=== PATIENT | male | born 1975 | race African-American/Black ===

== ENCOUNTER 2017-06-19 11:59 | Observation (INO) | payer MEDICAID, OTHER ==
[~2017-06-19] VITALS: Ht 170.2 cm; Wt 140.6 kg
[~2017-06-19 11:59] MED LIST: LOPRESSOR
[2017-06-19] MEDS ORDERED: ONDANSETRON HCL 4 MG/2 ML VIAL IV ONE (14:00)
[2017-06-19] MEDS ORDERED: MEPERIDINE HCL (25 MG/ML) 1ML VIAL IV ONE ×2 (14:00→16:00)
[2017-06-19 14:04] LABS: Basophils # (auto) 0.1 uL; Basophils % (auto) 1.3 % (0.0-2.0); Eosinophils # (auto) 0.3 uL; Eosinophils % (auto) 2.5 % (0.0-7.0); Hematocrit 44.7 % (41.0-53.0); Hemoglobin 14.8 g/dL (13.5-17.5); Lymphocytes % (auto) 27.2 % (10.0-50.0); Mean Corpuscular Hemoglobin 29.3 pg (28.0-32.0); Mean Corpuscular Hgb Conc. 33.1 g/dL (32.0-36.0); Mean Corpuscular Volume 88.4 fL (80.0-100.0); Monocytes # (auto) 0.7 uL; Neutrophils # (auto) 7.1 uL; Platelet Count (auto) 329 10^3/uL (140-450); Red Blood Cells 5.06 10^6/uL (4.5-5.90); Red Cell Distribution Width 14.1 % (11.8-14.3); White Blood Cell 11.2 10^3/uL (4.4-10.8)
[2017-06-19 14:17] LABS: INR 0.98 (0.9-1.15); Partial Thromboplastin Time 26.1 sec (22.64-33.71); Prothrombin Time 10.7 sec (9.37-12.3)
[2017-06-19] MEDS ORDERED: PERCOT PO (14:17)
[2017-06-19] MEDS ORDERED: METF-370 PO (14:17)
[2017-06-19] MEDS ORDERED: SIMV40TA96 PO (14:17)
[2017-06-19] MEDS ORDERED: METO-5 PO (14:17)
[2017-06-19] MEDS ORDERED: FURO40TA PO (14:17)
[2017-06-19] MEDS ORDERED: LISI30TA36 PO (14:17)
[2017-06-19] MEDS ORDERED: ASPI-378 PO (14:17)
[2017-06-19] MEDS ORDERED: ZOLP10TA PO (14:17)
[2017-06-19] MEDS ORDERED: CLOP75TA28 PO (14:17)
[2017-06-19 14:26] LABS: Alanine Aminotransferase 49 U/L (16-61); Albumin 4.1 g/dL (3.4-5.0); Alkaline Phosphatase 92 U/L (45-117); Anion Gap 8 (5-15); Aspartate Aminotransferase 27 U/L (15-37); BUN/Creatinine Ratio 7.8; Bilirubin, Total 0.4 mg/dL (0.2-1.0); Blood Urea Nitrogen 9 mg/dL (7-18); Calcium 8.9 mg/dL (8.5-10.1); Carbon Dioxide 25 mmol/L (21-32); Chloride 106 mmol/L (98-107); GFR African American 90 mL/min; GFR Non-African American 74 mL/min; Glucose 88 mg/dL (74-106); Potassium 3.8 mmol/L (3.5-5.1); Sodium 139 mmol/L (136-145); Total Protein 8.5 g/dL (6.4-8.2)
[2017-06-19] MEDS ORDERED: diphenhdrAMINE HCL 50 MG/1 ML VL IV ONE (15:00)
[2017-06-19 16:07] VITALS: BP 157/99
== END 2017-06-19 17:52 | disposition left against medical advice (07) | DRG 198 ==
LOC: EDBD 11:59 → ER 11:59 → OVERFLOW 13:52 → ER 17:52
PROVIDERS: ADMIT Family Medicine; ATTEND Family Medicine
DX: R07.2 Precordial pain (principal); I25.10 Atherosclerotic heart disease of native coronary artery without angina pectoris; I11.0 Hypertensive heart disease with heart failure; I50.9 Heart failure, unspecified; E11.9 Type 2 diabetes mellitus without complications; E78.5 Hyperlipidemia, unspecified; Z82.3 Family history of stroke; Z82.49 Family history of ischemic heart disease and other diseases of the circulatory system
CPT/HCPCS: 36415; 71045; 80053; 83880; 84443; 84484; 85025; 85379; 85610; 85730; 93005; 94761; 96374; 96375; 96376; 99285; G0378; J1200; J2175; J2405

== ENCOUNTER 2017-08-08 06:24 | Emergency (ER) | payer MEDICAID ==
[~2017-08-08] VITALS: Ht 170.2 cm; Wt 145.1 kg
[~2017-08-08 06:24] MED LIST changes: +ASPI-378 PO; +CLOP75TA28 PO; +FURO40TA PO; +LISI30TA36 PO; -LOPRESSOR; +METF-370 PO; +METO-5 PO; +PERCOT PO; +SIMV40TA96 PO; +ZOLP10TA PO
[2017-08-08] MEDS ORDERED: ASPirin 81 mg TAB PO ONE (07:00)
[2017-08-08 07:18] VITALS: BP 153/95
[2017-08-08 07:39] LABS: Basophils # (auto) 0.1 uL; Basophils % (auto) 1.3 % (0.0-2.0); Eosinophils # (auto) 0.3 uL; Eosinophils % (auto) 2.8 % (0.0-7.0); Hematocrit 42.9 % (41.0-53.0); Hemoglobin 14.3 g/dL (13.5-17.5); Lymphocytes # (auto) 2.2 uL; Lymphocytes % (auto) 23.2 % (10.0-50.0); Mean Corpuscular Hemoglobin 29.6 pg (28.0-32.0); Mean Corpuscular Hgb Conc. 33.4 g/dL (32.0-36.0); Mean Corpuscular Volume 88.9 fL (80.0-100.0); Monocytes # (auto) 0.5 uL; Monocytes % (auto) 5.4 % (0.0-12.0); Neutrophils # (auto) 6.3 uL; Neutrophils % (auto) 67.3 % (37.0-80.0); Nucleated Red Blood Cells % 0.2 %; Platelet Count (auto) 344 10^3/uL (140-450); Red Blood Cells 4.83 10^6/uL (4.5-5.90); Red Cell Distribution Width 14.7 % (11.8-14.3); White Blood Cell 9.4 10^3/uL (4.4-10.8)
[2017-08-08] MEDS ORDERED: NITROGLYCERIN 0.4 MG SL TAB SL ONE (07:45)
[2017-08-08] MEDS ORDERED: MORPHINE SULFATE 4 MG/ML SYR/VIAL IV ONE (07:45)
[2017-08-08] MEDS ORDERED: ONDANSETRON HCL 4 MG/2 ML VIAL IV ONE (07:45)
[2017-08-08 07:53] LABS: Chloride 109 mmol/L (98-107); Potassium 4.2 mmol/L (3.5-5.1); Sodium 140 mmol/L (136-145)
[2017-08-08 07:57] LABS: Alanine Aminotransferase 39 U/L (16-61); Albumin 3.9 g/dL (3.4-5.0); Anion Gap 9 (5-15); Aspartate Aminotransferase 26 U/L (15-37); BUN/Creatinine Ratio 13.4; Blood Urea Nitrogen 15 mg/dL (7-18); Calcium 8.9 mg/dL (8.5-10.1); Carbon Dioxide 22 mmol/L (21-32); GFR African American 93 mL/min; GFR Non-African American 77 mL/min; Glucose 136 mg/dL (74-106); Magnesium 2.6 mg/dL (1.6-2.6)
[2017-08-08] MEDS ORDERED: HYDROcodone-ACET 10/325MG TAB PO ONE (08:00)
[2017-08-08 08:02] LABS: Alkaline Phosphatase 74 U/L (45-117); Bilirubin, Total 0.3 mg/dL (0.2-1.0); Total Protein 8.1 g/dL (6.4-8.2)
[2017-08-08 08:13] LABS: INR 0.95 (0.9-1.15); Partial Thromboplastin Time 26.5 sec (22.64-33.71); Prothrombin Time 10.4 sec (9.37-12.3)
== END 2017-08-08 08:08 | disposition left against medical advice (07) ==
LOC: ER 06:30
DX: I24.9 Acute ischemic heart disease, unspecified (principal); R53.1 Weakness; R06.02 Shortness of breath; I25.10 Atherosclerotic heart disease of native coronary artery without angina pectoris; I11.0 Hypertensive heart disease with heart failure; I50.9 Heart failure, unspecified; E11.9 Type 2 diabetes mellitus without complications; E78.5 Hyperlipidemia, unspecified; Z91.041 Radiographic dye allergy status; Z88.6 Allergy status to analgesic agent; Z79.899 Other long term (current) drug therapy
CPT/HCPCS: 36415; 71045; 80053; 83735; 83880; 84443; 84484; 85025; 85610; 85730; 93005; 99291; J2405

== ENCOUNTER 2017-09-12 07:13 | Emergency (ER) | payer MEDICAID ==
[~2017-09-12] VITALS: Ht 170.2 cm; Wt 140.6 kg
[2017-09-12] MEDS ORDERED: cloNIDine HCL 0.1 MG TAB PO ONE (07:30)
[2017-09-12 07:36] VITALS: BP 157/95
== END 2017-09-12 07:43 | disposition home or self-care (01) ==
LOC: ER 07:13
DX: I11.0 Hypertensive heart disease with heart failure (principal); I50.9 Heart failure, unspecified; I25.10 Atherosclerotic heart disease of native coronary artery without angina pectoris; E11.9 Type 2 diabetes mellitus without complications; E78.5 Hyperlipidemia, unspecified; F17.210 Nicotine dependence, cigarettes, uncomplicated; Z88.5 Allergy status to narcotic agent; Z91.048 Other nonmedicinal substance allergy status
CPT/HCPCS: 93005

== ENCOUNTER 2018-06-07 08:36 | Emergency (ER) | payer MEDICAID ==
[~2018-06-07] VITALS: Ht 170.2 cm; Wt 138.8 kg
[2018-06-07 09:13] VITALS: BP 162/95
== END 2018-06-07 09:38 | disposition home or self-care (01) ==
LOC: ER 08:36
DX: R94.31 Abnormal electrocardiogram [ECG] [EKG] (principal); I11.0 Hypertensive heart disease with heart failure; I50.9 Heart failure, unspecified; E78.5 Hyperlipidemia, unspecified; I25.10 Atherosclerotic heart disease of native coronary artery without angina pectoris; E11.9 Type 2 diabetes mellitus without complications; F17.210 Nicotine dependence, cigarettes, uncomplicated; Z91.041 Radiographic dye allergy status
CPT/HCPCS: 93005

== ENCOUNTER 2018-10-26 13:14 | Emergency (ER) | payer MEDICAID ==
[~2018-10-26] VITALS: Ht 172.7 cm; Wt 145.1 kg
[~2018-10-26 13:14] MED LIST changes: +FURO1TAB31 PO; -FURO40TA PO
[2018-10-26 13:24] VITALS: BP 163/93
[2018-10-26] MEDS ORDERED: SODIUM CHLORIDE 0.9% 500 ML IVB ONE (13:26)
== END 2018-10-26 13:40 | disposition left against medical advice (07) ==
LOC: EDBD 13:14 → ER 13:14
DX: E11.649 Type 2 diabetes mellitus with hypoglycemia without coma (principal); R07.9 Chest pain, unspecified; I25.10 Atherosclerotic heart disease of native coronary artery without angina pectoris; E78.5 Hyperlipidemia, unspecified; I11.0 Hypertensive heart disease with heart failure; I50.9 Heart failure, unspecified; F17.210 Nicotine dependence, cigarettes, uncomplicated; Z96.652 Presence of left artificial knee joint; Z88.5 Allergy status to narcotic agent; Z79.82 Long term (current) use of aspirin; Z79.01 Long term (current) use of anticoagulants; Z79.899 Other long term (current) drug therapy; Z53.29 Procedure and treatment not carried out because of patient's decision for other reasons

== ENCOUNTER 2025-01-25 13:20 | Emergency (ER) | payer MEDICAID ==
[~2025-01-25] VITALS: Ht 167.6 cm; Wt 131.6 kg
[~2025-01-25 13:20] MED LIST changes: +ERGO2000 PO; -LISI30TA36 PO; +LISI30TA8 PO; -METO-5 PO; +METO1TAB77 PO; +NITR0.4S29 SL; +PRED20TA2 PO; +SIMV40TA42 PO; -SIMV40TA96 PO
[2025-01-25 13:33] VITALS: TEMP 98.2
[2025-01-25 13:56] VITALS: BP 169/96; PULSE 89; RESP 13; O2SAT 94
--- NOTE | 2025-01-25 14:12 | ECG ---
[facility] Test Date: 2025-01-25 Test Time: 13:31:21 Pat Name: ROGERIO SALGUERO Department: [facility] ED Patient ID: [facility]-[id number] Room: Gender: M Group Home Supervisor: madhu : 1975 Requested By: OSWALDO ALMAZAN Order Number: [id number] Reading MD: Measurements Intervals [place] Rate: 76 P: 23 GA: 171 QRS: 5 QRSD: 90 T: 105 QT: 399 QTc: 449 Interpretive Statements Sinus rhythm Probable left atrial enlargement Abnormal R-wave progression, early transition Borderline repolarization abnormality Baseline wander in lead(s) V2 Please click the below link to view image of tracing.
[2025-01-25] MEDS: KETOROLAC TROMETH 60MG/2ML VIAL IM ONE (14:13)
--- NOTE | 2025-01-25 14:38 | ED.PDOC ---
History of Present Illness HPI Comments 49 y/o morbidly obese M is BIBA with spouse for c/c of AMS. Per spouse, patient was referred to the ED by his visiting home health nurse, earlier, today, after, recently, returning from a dental appointment and, accidentally, taking 6x pills of his 4mg methylprednisolone medication for his rheumatoid arthritis. He is stated to not have, also, eaten all day in addition to being off his Plavix for the past few days in preparation for his aforementioned dental procedure. Denial of any further acute symptoms. Chief Complaint: Overdose Time Seen by MD: 13:50 Primary Care Provider: INGRID Reviewed Notes: Nurses Notes, Medications, Allergies Allergies: Coded Allergies: Iodine (Verified Allergy, Unknown, 06/13/24) Morphine (Verified Allergy, Unknown, 06/13/24) Uncoded Allergies: CONTRAST (Allergy, Unknown, 10/01/14) Home Meds Reported Medications Ergocalciferol (VITAMIN D2) 2,000 Unit Tab, [address]396 UNIT PO QWEEKLY, TAB 05/25/24 Nitroglycerin (Nitrostat) 0.4 Mg Sub, 0.4 MG SL DAILY for CHEST PAIN, INJ 05/25/24 Prednisone (Prednisone) 20 Mg Tab, 20 MG PO DAILY, MG 05/25/24 Metoprolol Tartrate (Lopressor) 50 Mg Tab, 1 TAB PO BID, #60 TAB 5 Refills 06/19/17 Metformin Hydrochloride (Metformin Hcl) 500 Mg Tab, 1 TAB PO DAILY, #60 TAB 3 Refills 06/19/17 Zolpidem Tartrate (Ambien) 10 Mg Tab, 1 TAB PO QPM, #30 TAB 5 Refills 06/19/17 Oxycodone W/ Acetaminophen (Percocet 5/325MG) 1 Tab Tb, 1 TAB PO TID, #120 TAB 06/19/17 Simvastatin (Zocor) 40 Mg Tab, 1 TAB PO HS, #90 TAB 1 Refill 06/19/17 Aspirin (LAURENCE ASPIRIN EC LOW DOSE) 81 Mg Tab, 1 TAB PO DAILY, #30 TAB 3 Refills 06/19/17 Furosemide (Lasix) 40 Mg Tab, 40 MG PO BID PRN for CHF, TAB 06/19/17 Clopidogrel Bisulfate (Plavix) 75 Mg Tab, 1 TAB PO DAILY, #90 TAB 1 Refill 06/19/17 Lisinopril (Lisinopril) 30 Mg Tab, 1 TAB PO BID, #30 TAB 5 Refills 06/19/17 Information Source: Patient Mode of Arrival: Ambulatory Severity: Moderate Timing: Hours Duration: Since onset Prehospital treatment: None Past Medical History PAST MEDICAL HISTORY: CAD, CHF, DM, High Lipids, HTN Family History Family History: Reviewed,noncontributory to illness, No family hx of Cancer, No family hx of Heart kan, No family hx of HTN, No family hx of Stroke Social History Smoker: Cigarettes, Less Than 1 Pack/Day Alcohol: Denies ETOH Use Drugs: Denies Drug Use Lives In: Home All Other Systems: Reviewed and Negative (Comprehensive review of systems are negative unless stated in HPI) Physical Exam General Appearance: Moderate Distress, Obese HEENT: Normal ENT Inspection, Pharynx Normal, TMs Normal Neck: Full Range of Motion, Non-Tender, Normal, Normal Inspection Respiratory: Chest Non-Tender, Lungs Clear, No Accessory Muscle Use, No Respiratory Distress, Normal Breath Sounds Cardiovascular: No Edema, No JVD, No Murmur, No Gallop, Normal Peripheral Pul ses, Regular Rate/Rhythm Breast Exam: Deferred Gastrointestinal: No Organomegaly, Non Tender, No Pulsatile Mass, Normal Bowel Sounds, Soft Genitalia: Deferred Pelvic: Deferred Rectal: Deferred Extremities: No calf tenderness, Normal capillary refill, Normal inspection, Normal range of motion, Non-tender, No pedal edema Musculoskeletal : Apperance: Normal Neurologic: Alert, data quality consultant II-XII nml as Tested, No Motor Deficits, Normal Affect, Normal Mood, No Sensory Deficits Cerebellar Function: NOT DONE Reflexes: NOT DONE Skin: Dry, Normal Color, Warm Peripheral Pulses: 3+ Radial (R), 3+ Radial (L) Lymphatic: No Adenopathy Was a procedure done? Was a procedure done?: No Differential Dx Considerations may include: medication overdose, noncompliance, metabolic encephalopathy, among others X-Ray, Labs, Meds, VS Vital Signs Date Time Temp Pulse Resp B/P (MAP) Pulse Ox O2 Delivery O2 Flow Rate FiO2 01/25/25 13:56 89 13 94 Room Air* 0 21 01/25/25 13:56 89 13 169/96 (120) 92 01/25/25 13:34 76 01/25/25 13:33 98.2 82 14 152/104 94 98.2 Lab Test 01/25/25 14:05 01/25/25 14:00 Range/Units Urine Color Colorless Yellow Urine Clarity Clear Clear Urine pH 6.5 5.0-9.0 Urine Specific [place] 1.010 1.001-1.035 Urine Protein Negative Negative Urine Ketones Negative Negative Urine Blood Negative Negative /uL Urine Nitrite Negative Negative Urine Bilirubin Negative Negative Urine Urobilinogen Normal Negative mg/dL Urine Leukocyte Esterase Negative Negative /uL Urine RBC None seen 0 - 3 /hpf Urine Microscopic WBC < 1 0-3 /HPF Urine Squamous Epithelial Cells None seen <5 /hpf Urine Bacteria None seen None Seen /hpf Urine Glucose Normal Normal mg/dL Urine Opiates Screen Neg NEGATIVE Urine Fentanyl Screen Neg NEGATIVE Urine Barbiturates Screen Neg NEGATIVE Urine Phencyclidine Screen Neg NEGATIVE Urine Amphetamines Screen Neg NEGATIVE Urine Benzodiazepines Screen Neg NEGATIVE Urine Cocaine Screen Neg NEGATIVE Urine Cannabinoids Screen Neg NEGATIVE POC Glucose 79 70-106 mg/dl Patient alert. Answering all questions. Ambulating. Vitals stable. Has taken steroid. Few mg more than normal. By accident. Was going to monitor the patient. Insists on going home. Left against medical advice. Time of 1ST Reevaluation: 14:20 Reevaluation 1ST: Unchanged Patient Education/Counseling: Treatment, Need For Follow Up Family Education/Counseling: No Family Present SEPSIS Sepsis Screen Date sepsis recognized/suspect: Jan 25, 2025 Time Sepsis recognized/suspect: 1336 Recent Procedure: No On Antibiotic Therapy: No Respiratory Rate >20: No Heart Rate >90: No Temp<36 C (96.8 F) or >38.3 C: No SBP <90 or MAP <65 mmHG: No New Acute Mental Status Change: No Is the patient on CPAP, BIPAP,: No Vital Signs Date Time Temp Pulse Resp B/P (MAP) Pulse Ox O2 Delivery O2 Flow Rate FiO2 01/25/25 13:56 89 13 94 Room Air* 0 21 01/25/25 13:56 89 13 169/96 (120) 92 01/25/25 13:34 76 01/25/25 13:33 98.2 82 14 152/104 94 98.2 Departure 1 Departure Time of Disposition: 16:31 Impression: Primary Impression: HTN (hypertension) Qualified Codes: I10 - Essential (primary) hypertension Additional Impression: Accidental drug ingestion Qualified Codes: T50.901A - Poisoning by unspecified drugs, medicaments and biological substances, accidental (unintentional), initial encounter Disposition: 30 STILL A PATIENT Condition: Good Discharged With: Self Critical Care Note Critical Care Time?: No Stability Stability form required: No Heart Score Heart Score: Heart Score Response (Comments) Value History N/A 0 EKG N/A 0 Age N/A 0 Risk Factors N/A 0 Troponin N/A 0 Total 0 I personally scribed for OSWALDO ALMAZAN MD ([email or web address]) on 01/25/25 at 14:38. Electronically submitted by Roderick Aquino ([email or web address]). OSWALDO ALMAZAN MD Jan 25, 2025 14:38
[2025-01-25 15:00] LABS: Urine Protein, UAD Negative (Negative)
[2025-01-25 15:11] LABS: Amphetamine Screen, Urine Neg (NEGATIVE); Barbiturate Scree,Urine Neg (NEGATIVE); Benzodiazephine Screen, Urine Neg (NEGATIVE); Cannabinoid Screen, Urine Neg (NEGATIVE); Cocaine Screen, Urine Neg (NEGATIVE); Opiate Scree,Urine Neg (NEGATIVE); Phencyclidine Screen, Urine Neg (NEGATIVE)
== END 2025-01-25 14:33 | disposition left against medical advice (07) ==
LOC: EDBD 13:20 → ER 13:20
DX: I11.0 Hypertensive heart disease with heart failure (principal); I50.9 Heart failure, unspecified; T50.912A Poisoning by multiple unspecified drugs, medicaments and biological substances, intentional self-harm, initial encounter; E78.5 Hyperlipidemia, unspecified; F17.210 Nicotine dependence, cigarettes, uncomplicated; E66.01 Morbid (severe) obesity due to excess calories; E11.9 Type 2 diabetes mellitus without complications; I25.10 Atherosclerotic heart disease of native coronary artery without angina pectoris; M06.9 Rheumatoid arthritis, unspecified; Z79.899 Other long term (current) drug therapy; Z79.891 Long term (current) use of opiate analgesic; Z79.82 Long term (current) use of aspirin; Z79.52 Long term (current) use of systemic steroids; Z79.02 Long term (current) use of antithrombotics/antiplatelets; Z88.8 Allergy status to other drugs, medicaments and biological substances; Z88.5 Allergy status to narcotic agent; Z79.84 Long term (current) use of oral hypoglycemic drugs; Y92.89 Other specified places as the place of occurrence of the external cause
CPT/HCPCS: 80307; 81001; 82947; 82962; 93005